=== PATIENT | female | born 1960 ===

== ENCOUNTER 2017-02-21 07:13 | Observation (INO) | payer OTHER, MEDICAID ==
--- NOTE | 2017-02-21 07:48 | ED PDOC ---
HPI:STROKE - Time Time: 07:45 - Historian Historian: Patient - Chief Complaint Chief Complaint: Weakness - Onset Date: 02/20/17 Time: 21:00 (last known well) - Timing Timing: Currently Symptomatic - Notes: Notes:: Pt. was doing well when she went to bed at 9pm. This morning when she woke up at 630am she had dizziness, weakness to the R side more then the left, numbness to the entire R side. [place] to the L leg. No vision changes. No headaches. Numbness to the R face. No neck pain, dyspnea, fever, chest pain. No speech issues. Nausea, no vomit. No abd pain. Feels off balance. NIHSS Stroke Scale - Date/Time Evaluation Performed Date Performed: 02/21/17 Time Performed: 07:48 When Was NIHSS Performed: Baseline - How Severe is the Stroke Level of Consciousness: 0=Alert LOC to Questions: 0=Both comments correct LOC to commands: 0=Obeys both correctly Best Gaze: 0=Normal Visual: 0=No visual loss Facial: 0=Normal Motor Arm - Left: 0=No drift Motor Arm - Right: 0=No drift Motor Leg - Left: 0=No drift Motor Leg - Right: 0=No drift Limb Ataxia: 0=Absent Sensory: 0=Normal Best Language: 0=No aphasia Dysarthia: 0=Normal articulation Extinction & Inattention (Neglect): 0=Normal, no object Score: 0 rTPA Inclusion/Exclusion - Refusal of Treatment Patient Refused Treatment: No - Inclusion Criteria for Altepase Patient is 18 years or Older: Yes The Clinical Diagnosis of Ischemic Stroke That is Causing a Potentially Disabling Neurological Deficit: No Time of Onset is Well Established to be Less Than 270 Minute Before Treatment Would Begin: No Risk/Benefit Discussed With Patient/Family Member Present: No Past Medical History Reviewed: Nursing Documentation, Vital Signs Vital Signs: Last Vital Signs Temp 98.4 F 02/21/17 07:19 Pulse 58 L 02/21/17 07:19 Resp 20 02/21/17 07:19 BP 147/101 H 02/21/17 07:19 Pulse Ox 99 02/21/17 07:19 - Medical History Other PMH: prediabetic and bipolar - Family History Family History: States: Unknown Family Hx - Social History Current smoker - smoking cessation education provided: No Alcohol: None Drugs: Denies - Home Medications Home Medications: Ambulatory Orders Medication Instructions Recorded Doxepin [Sinequan] 25 mg PO HS 02/21/17 - Allergies Allergies/Adverse Reactions: Allergies Allergy/AdvReac Type Severity Reaction Status Date / Time Penicillins Allergy RASH Verified 02/21/17 07:42 Review of Systems ROS Statement: Except As Marked, All Systems Reviewed And Found Negative Constitutional: Positive for: Weakness Neurological: Positive for: Weakness, Numbness, Incoordination (feels off balance), Dizziness Physical Exam - Reviewed Nursing Documentation Reviewed: Yes Vital Signs Reviewed: Yes - Physical Exam Appears: Positive for: Non-toxic, No Acute Distress Head Exam: Positive for: ATRAUMATIC, NORMAL INSPECTION, NORMOCEPHALIC Skin: Positive for: Normal Color, Warm, DRY Eye Exam: Positive for: EOMI, Normal appearance, PERRL ENT: Positive for: Normal ENT Inspection Neck: Positive for: Normal, Painless ROM Cardiovascular/Chest: Positive for: Regular Rate, Rhythm Respiratory: Positive for: CNT, Normal Breath Sounds Gastrointestinal/Abdominal: Positive for: Normal Exam, Bowel Sounds, Soft. Negative for: Tenderness Back: Positive for: Normal Inspection. Negative for: L CVA Tenderness, R CVA Tenderness Extremity: Positive for: Normal ROM. Negative for: Tenderness, Pedal Edema Neurologic/Psych: Positive for: Alert, creative services coordinator II-XII, Oriented, Motor/Sensory Deficits (R side 3/5 strength, L side 4/5 strength of upper and lower extremities) - Laboratory Results Result Diagrams: 02/21/17 07:50 02/21/17 07:50 Interpretation Of Abn Labs: no acute - ECG ECG Rhythm: Positive for: Normal QRS, Normal ST Segment, Sinus Bradycardia (52 hr) O2 Sat by Pulse Oximetry: 99 Pulse Ox Interpretation: Normal - Radiology X-Ray: Read By Radiologist X-Ray Interpretation: No Acute Disease - CT Scan/US ct Other Rad Studies (CT/US): Read By Radiologist Other Rad Interpretation: no acute - Progress ED Course And Treament: 1122: Pt. states weakness and dizziness improving, but still there. Will need to admit tele for eval. 1152: Stable. Spoke with Dr. Goddard. Will admit. Spoke with neurology. No thrombolytics. Pt. to get admit and ASA. Disposition - Clinical Impression Clinical Impression: CVA (cerebral vascular accident) - Patient ED Disposition Is Patient to be Admitted: Yes Counseled Patient/Family Regarding: Studies Performed, Diagnosis - Disposition Disposition Time: 12:02 Condition: FAIR - Pt Status Changed To: Hospital Disposition Of: Inpatient - Admit Certification Admit to Inpatient:: After my assessment, the patient will require hospitalization for at least two midnights. This is because of the severity of symptoms shown, intensity of services needed, and/or the medical risk in this patient being treated as an outpatient. - POA Present On Arrival: None
[2017-02-21 08:04] LABS: EOS # 0.2 K/uL (0.0-0.7); EOS % 4.1 % (0.0-4.0); HEMATOCRIT 43.5 % (34.0-47.0); LYMPH # 1.7 K/uL (1.0-4.3); LYMPH % 39.2 % (20.0-40.0); MEAN CELL VOLUME 91.9 fl (81.0-99.0); MEAN CORPUSCULAR HEMOGLOBIN 29.8 pg (27.0-31.0); MEAN CORPUSCULAR HGB CONC 32.4 g/dL (33.0-37.0); MEAN PLATELET VOLUME 11.6 fl (7.2-11.7); MONO # 0.4 K/uL (0.0-0.8); MONO % 8.8 % (0.0-10.0); NEUT # 2.1 K/uL (1.8-7.0); NEUT % 46.9 % (50.0-75.0); NRBC % 0.1 % (0.0-0.0); RED CELL DISTRIBUTION WIDTH 14.8 % (11.5-14.5); WHITE BLOOD COUNT 4.4 K/uL (4.8-10.8)
[2017-02-21] MEDS: Sodium Chloride 0.9% 1,000 ML IV SCH ×2 (08:07→16:49)
--- NOTE | 2017-02-21 08:07 | CT ---
PROCEDURE: CT HEAD WITHOUT CONTRAST. HISTORY: code stroke COMPARISON: None available. TECHNIQUE: Axial computed tomography images were obtained through the head/brain without intravenous contrast. Radiation dose: Total exam DLP = mGy-cm. This CT exam was performed using one or more of the following dose reduction techniques: Automated exposure control, adjustment of the mA and/or kV according to patient size, and/or use of iterative reconstruction technique. FINDINGS: HEMORRHAGE: No intracranial hemorrhage. BRAIN: No mass effect or edema. No atrophy or chronic microvascular ischemic changes. VENTRICLES: Unremarkable. No hydrocephalus. CALVARIUM: Unremarkable. PARANASAL SINUSES: Unremarkable as visualized. No significant inflammatory changes. MASTOID AIR CELLS: Unremarkable as visualized. No inflammatory changes. OTHER FINDINGS: None. IMPRESSION: No evidence of acute intracranial hemorrhage territorial infarct mass effect or midline shift.
[2017-02-21 08:20] LABS: PARTIAL THROMBOPLASTIN TIME 24.7 SECONDS (23.3-32.5)
[2017-02-21 08:35] LABS: ALB/GLOB RATIO 1.2 (1.0-2.1); ALKALINE PHOSPHATASE 72 U/L (38-126); ALT/SGPT 39 U/L (9-52); AST/SGOT 38 U/L (14-36); BILIRUBIN,TOTAL 0.6 mg/dl (0.2-1.3); BLOOD UREA NITROGEN 9 mg/dl (7-17); CALCIUM 9.1 mg/dL (8.4-10.2); CARBON DIOXIDE 27 mmol/L (22-30); CHLORIDE 104 mmol/L (98-107); CHOLESTEROL 208 mg/dL (0-199); GFR AFRICAN-AMERICAN > 60; GLUCOSE,RANDOM 109 mg/dL (65-105); SODIUM 143 mmol/l (132-148); TOTAL PROTEIN 7.2 G/DL (6.3-8.2)
[2017-02-21 08:37] LABS: POTASSIUM 3.9 MMOL/L (3.6-5.0)
--- NOTE | 2017-02-21 08:53 | RAD ---
HISTORY: Dizziness COMPARISON: No prior. FINDINGS: LUNGS: There are low lung volumes. No focal consolidation. PLEURA: No significant pleural effusion identified, no pneumothorax apparent. CARDIOVASCULAR: Normal. OSSEOUS STRUCTURES: No significant abnormalities. VISUALIZED UPPER ABDOMEN: Normal. OTHER FINDINGS: None. IMPRESSION: No active pulmonary disease.
--- NOTE | 2017-02-21 14:52 | CARD ---
APPROVED REPORT EKG Measurement Heart [id number] <Conclusion> Sinus bradycardia Otherwise normal ECG
--- NOTE | 2017-02-21 19:02 | CP.PCM.CON ---
History of Present Illness - History of Present Illness History of Present Illness: Mrs. Carpenter is a 56-year-old woman with a past medical history of bipolar disorder and pre-diabetes who states that she woke up this morning with a feeling that the room was spinning and right sided weakness. She was able to ambulate, but felt that the right side was weaker than the left and it felt numb. She complained of nausea, but did not have any visual deficits, headache , chest pain, shortness of breath, abdominal pain or vomiting. Review of Systems - Review of Systems All systems: reviewed and no additional remarkable complaints except Past Patient History - Infectious Disease Hx of Infectious Diseases: None - Past Medical History & Family History Past Medical History?: Yes - Past Social History Smoking Status: Never Smoked - CARDIAC Hx Cardiac Disorders: No - PULMONARY Hx Respiratory Disorders: No - NEUROLOGICAL Hx Neurological Disorder: No - HEENT Hx HEENT Problems: No - RENAL Hx Chronic Kidney Disease: No - ENDOCRINE/METABOLIC Hx Endocrine Disorders: Yes Hx Diabetes Mellitus Type 2: Yes (pre-diabetes) - HEMATOLOGICAL/ONCOLOGICAL Hx Blood Disorders: No - INTEGUMENTARY Hx Dermatological Problems: No - MUSCULOSKELETAL/RHEUMATOLOGICAL Hx Musculoskeletal Disorders: No - GASTROINTESTINAL Hx Gastrointestinal Disorders: No - GENITOURINARY/GYNECOLOGICAL Hx Genitourinary Disorders: Yes Other/Comment: endometriosis - PSYCHIATRIC Hx Psychophysiologic Disorder: Yes Hx Bipolar Disorder: Yes Hx Substance Use: No - SURGICAL HISTORY Hx Surgeries: No - ANESTHESIA Hx Anesthesia: No Meds Allergies/Adverse Reactions: Allergies Allergy/AdvReac Type Severity Reaction Status Date / Time Penicillins Allergy RASH Verified 02/21/17 07:42 - Medications Medications: Current Medications Doxepin HCl (Sinequan) 25 mg PO HS [facility] Sodium Chloride (Sodium Chloride 0.9%) 1,000 mls @ 100 mls/hr IV .Q10H CHRISTEL Last Admin: 02/21/17 16:49 Dose: 100 mls/hr Lamotrigine (Lamictal) 200 mg PO DAILY CHRISTEL Last Admin: 02/21/17 16:39 Dose: 200 mg Meclizine HCl (Antivert) 12.5 mg PO BID PRN PRN Reason: Dizziness Physical Exam - Constitutional Appears: Well - Head Exam Head Exam: ATRAUMATIC, NORMAL INSPECTION, NORMOCEPHALIC - Eye Exam Eye Exam: EOMI, Normal appearance, PERRL - ENT Exam ENT Exam: Mucous Membranes Moist, Normal Exam - Neck Exam Neck exam: Positive for: Normal Inspection - Respiratory Exam Respiratory Exam: Clear to Auscultation Bilateral, NORMAL BREATHING PATTERN - Cardiovascular Exam Cardiovascular Exam: REGULAR RHYTHM, +S1, +S2 - GI/Abdominal Exam GI & Abdominal Exam: Normal Bowel Sounds, Soft. absent: Tenderness - Back Exam Back exam: NORMAL INSPECTION - Neurological Exam Neurological exam: Abnormal Gait, CN II-XII Intact, Oriented x3 - Expanded Neurological Exam Expanded Patient oriented to: person, place, time Speech: Fluid Speech Cranial nerves: EOM's Intact: Normal, Facial Sensation: Abnormal Right, Gag Reflex: Normal Ataxia: No Cerebellar Function: Finger to Nose: Abnormal Right, Heel to Murphy: Abnormal Right Upper motor neuron: Babinski Sign: Abnormal Right Sensory exam: Lower Extremity 2 Point Discrimination: Abnormal Right, Lower Extremity Light Touch: Abnormal Right, Lower Extremity Pin Prick: Abnormal Right , Upper Extremity Light Touch: Abnormal Right, Upper Extremity Pin Prick: Abnormal Right Neuro motor strength exam: Left Upper Extremity: 5, Right Upper Extremity: 4, Left Lower Extremity: 5, Right Lower Extremity: 4 DTR: Bicep Left: 2+, Bicep Right: 3+, Patellar Left: 2+, Patellar Right: 3+ - Psychiatric Exam Psychiatric exam: Normal Affect, Normal Mood - Skin Skin Exam: Dry, Intact, Normal Color, Warm Results - Vital Signs Recent Vital Signs: Last Vital Signs Temp 98.2 F 02/21/17 17:05 Pulse 56 L 02/21/17 17:05 Resp 18 02/21/17 17:05 BP 102/66 02/21/17 17:05 Pulse Ox 97 02/21/17 17:05 - Labs Result Diagrams: 02/21/17 07:50 02/21/17 07:50 Labs: Laboratory Results - last 24 hr 02/21/17 15:20 Blood Type Confirm B POSITIVE - Imaging and Cardiology CT scan - head Status: Image reviewed by me, Report reviewed by me (No acute findings noted. ) Assessment & Plan (1) CVA (cerebral vascular accident) Assessment and Plan: Clinically, the patient has a right facial droop, sensory changes and weakness. Likely a lacunar infarct. I recommend: MRI/MRA of the head/neck, carotid ultrasound, lipid panel, HbA1c, CRP, ESR, B12, folate, aspirin 81 mg daily, lipitor 40 mg daily, NS at 100 mL/hr, permissive hypertension (do not treat BP < 220/110 for the first 24-36 hours), echocardiogram with bubble study, DVT Px, PT /OT/ST, case management consult. Status: Acute Priority: High
[2017-02-21 21:11] LABS: CHOLESTEROL 202 mg/dL (0-199)
[2017-02-22] MEDS: Sodium Chloride 0.9% 1,000 ML IV SCH ×2 (04:45→13:45)
--- NOTE | 2017-02-22 08:56 | CT ---
PROCEDURE: CT HEAD WITHOUT CONTRAST. HISTORY: Right arm/ right side face tingling and numbness COMPARISON: None available. TECHNIQUE: Axial computed tomography images were obtained through the head/brain without intravenous contrast. Radiation dose: Total exam DLP = 822.45 mGy-cm. This CT exam was performed using one or more of the following dose reduction techniques: Automated exposure control, adjustment of the mA and/or kV according to patient size, and/or use of iterative reconstruction technique. FINDINGS: HEMORRHAGE: No intracranial hemorrhage. BRAIN: Melvin-white matter differentiation is preserved. There is no mass, mass effect or abnormal extra-axial fluid collection. VENTRICLES: The ventricles are normal in size, shape and configuration. CALVARIUM: There is no calvarial fracture or extracranial soft tissue swelling. PARANASAL SINUSES: Predominantly clear. MASTOID AIR CELLS: Predominantly clear. OTHER FINDINGS: None. IMPRESSION: No acute intracranial abnormality. If there is a persistent focal neurologic deficit and an ongoing clinical concern for acute infarction, an MRI of the brain without intravenous contrast would be a more sensitive modality for evaluation of hyperacute/acute ischemic infarction. A preliminary report was provided by [employer].
--- NOTE | 2017-02-22 12:23 | CARD ---
APPROVED REPORT EXAM: Two-dimensional and M-mode echocardiogram with Doppler and color Doppler. Other Information Quality : GoodRhythm : NSR INDICATION Dizziness and Vertigo 2D DIMENSIONS IVSd0.73 (0.7-1.1cm)LVDd4.55 (3.9-5.9cm) PWd0.68 (0.7-1.1cm)IVSs0.88 (0.8-1.2cm) LVDs2.79 (2.5-4.0cm)FS (%) 38.8 % PWs1.02 (0.8-1.2cm) M-Mode DIMENSIONS Left Atrium (MM)3.79 (2.5-4.0cm)IVSd0.82 (0.7-1.1cm) Aortic Root2.91 (2.2-3.7cm)LVDd5.56 (4.0-5.6cm) Aortic Cusp Exc.1.47 (1.5-2.0cm)PWd0.74 (0.7-1.1cm) IVSs1.47 cmFS (%) 50 % LVDs2.76 (2.0-3.8cm)PWs1.44 cm Mitral Valve MV E Xrmqcedz81.3cm/sMV DECEL [id number] A Qrwqdcce90.7cm/s MV OXC12vhX/A ratio1.2MVA (PHT)3.42cm2 TDI Lateral E' Peak V12.96cm/sMedial E' Peak V11.73cm/sE/Lateral E'6.6 E/Medial E'7.3 LEFT VENTRICLE The left ventricle is normal size. There is normal left ventricular wall thickness. Left ventricle systolic function is normal. The Ejection Fraction is 60-65%. There is normal LV segmental wall motion. The left ventricular diastolic function is normal. RIGHT VENTRICLE The right ventricle is normal size. There is normal right ventricular wall thickness. The right ventricular systolic function is normal. ATRIA The left atrium size is normal. The right atrium size is normal. AORTIC VALVE The aortic valve is normal in structure and function. No aortic regurgitation is present. There is no aortic valvular stenosis. MITRAL VALVE The mitral valve is normal in structure and function. There is no evidence of mitral valve prolapse. There is no mitral valve stenosis. There is no mitral valve regurgitation noted. TRICUSPID VALVE The tricuspid valve is normal in structure and function. There is no tricuspid valve regurgitation noted. PULMONIC VALVE The pulmonary valve is normal in structure and function. There is no pulmonic valvular regurgitation. GREAT VESSELS The aortic root is normal in size. The IVC is normal in size and collapses >50% with inspiration. PERICARDIAL EFFUSION The pericardium appears normal. <Conclusion> The left ventricle is normal size. There is normal left ventricular wall thickness. There is normal LV segmental wall motion. Left ventricle systolic function is normal. The Ejection Fraction is 60-65%. The left ventricular diastolic function is normal.
--- NOTE | 2017-02-22 16:42 | MRI ---
PROCEDURE: MRI BRAIN WITHOUT CONTRAST HISTORY: right side weakness COMPARISON: Comparison is made to the previous CT dated 02/21/2017 TECHNIQUE: Multiplanar, multisequence MR images of the brain were obtained without intravenous contrast enhancement. FINDINGS: HEMORRHAGE: None DWI: No evidence of an acute or early subacute infarction. BRAIN PARENCHYMA: No mass effect or edema. No atrophy or chronic microvascular ischemic changes. VENTRICLES: Unremarkable. No hydrocephalus. CRANIUM: Unremarkable. ORBITS: Grossly unremarkable. PARANASAL SINUSES/MASTOIDS: Clear VASCULAR SYSTEM: Skull base flow voids intact. OTHER FINDINGS: None. IMPRESSION: No evidence of acute infarct or acute pathology in the brain.
--- NOTE | 2017-02-22 16:45 | CP.PCM.HP ---
<Sera Echevarria - Last Filed: 02/22/17 17:13> History of Present Illness - History of Present Illness History of Present Illness: CC: numbness/tingling in RUE/RLE Patient was admitted yesterday and seen this morning at bedside with attending. 56F who reports getting ready for work yesterday as usual but she did not "feel well", but unable to qualify, while getting showered and dressed. She says she called [employer] and was heading to work and then along the way began feeling worse with headache and dizziness, specifically as though "the room was spinning" and asked the [employer] hydraulic lift driver to bring her to the ED. She then reports she began feeling numbness/tingling that involved her RIGHT upper/lower extremity with some mild weakness, but the numbness/tingling was the prominent symptom. She denies having the symptoms in the past, it was not associated with any recent viral illnesses (pneumonia in July 2016), no hearing loss, no speech or visual changes, no diaphoresis, no chest pain, no palpitations. She denies urinary symptoms, diarrhea. Of note, she reports the symptoms resolved in the ED and she denies any symptoms this morning. Currently she denies SOB, chest pain, nausea, tolerated dinner last night, passing flatus, no other feelings of weakness/numbness/tingling overnight but she still feels a "little dizzy, like the room is spinning, but very mild". PMH: Bipolar PSH: Laparotomy for endometriosis PFH: Father- from lung ca at 65yo; Mother- Alive w/ HTN; denies siblings Allergies: PCN (rxn unknown) Medications: See Med Rec Present on Admission - Present on Admission Any Indicators Present on Admission: No History of DVT/PE: No History of Uncontrolled Diabetes: No Urinary Catheter: No Decubitus Ulcer Present: No Review of Systems - Review of Systems All systems: reviewed and no additional remarkable complaints except - Neurological Neurological: Numbness, Tingling, Vertigo Past Patient History - Infectious Disease Hx of Infectious Diseases: None - Past Medical History & Family History Past Medical History?: Yes - Past Social History Smoking Status: Never Smoked - CARDIAC Hx Cardiac Disorders: No - PULMONARY Hx Respiratory Disorders: No - NEUROLOGICAL Hx Neurological Disorder: No - HEENT Hx HEENT Problems: No - RENAL Hx Chronic Kidney Disease: No - ENDOCRINE/METABOLIC Hx Endocrine Disorders: Yes Hx Diabetes Mellitus Type 2: Yes (pre-diabetes) - HEMATOLOGICAL/ONCOLOGICAL Hx Blood Disorders: No - INTEGUMENTARY Hx Dermatological Problems: No - MUSCULOSKELETAL/RHEUMATOLOGICAL Hx Musculoskeletal Disorders: No - GASTROINTESTINAL Hx Gastrointestinal Disorders: No - GENITOURINARY/GYNECOLOGICAL Hx Genitourinary Disorders: Yes Other/Comment: endometriosis - PSYCHIATRIC Hx Psychophysiologic Disorder: Yes Hx Bipolar Disorder: Yes Hx Substance Use: No - SURGICAL HISTORY Hx Surgeries: No - ANESTHESIA Hx Anesthesia: No Meds Allergies/Adverse Reactions: Allergies Allergy/AdvReac Type Severity Reaction Status Date / Time Penicillins Allergy RASH Verified 02/21/17 07:42 Physical Exam - Constitutional Appears: Well, Non-toxic, No Acute Distress - Head Exam Head Exam: ATRAUMATIC, NORMAL INSPECTION - Eye Exam Eye Exam: EOMI, PERRL. absent: Nystagmus - ENT Exam ENT Exam: Mucous Membranes Moist, Normal Exam - Neck Exam Neck exam: Positive for: Full Rom, Normal Inspection. Negative for: Lymphadenopathy - Respiratory Exam Respiratory Exam: Clear to Auscultation Bilateral, NORMAL BREATHING PATTERN. absent: Rales, Rhonchi, Wheezes - Cardiovascular Exam Cardiovascular Exam: REGULAR RHYTHM. absent: JVD - GI/Abdominal Exam GI & Abdominal Exam: Normal Bowel Sounds, Soft. absent: Tenderness - Extremities Exam Extremities exam: Positive for: full ROM, normal capillary refill, normal inspection. Negative for: pedal edema - Neurological Exam Neurological exam: Alert, CN II-XII Intact, Oriented x3, Reflexes Normal Additional comments: NO MOTOR/SENSORY DEFICITS PRESENT AT EXAM THIS MORNING NO FACIAL DROOP NO NASOLABIAL FOLD FLATTENING - Psychiatric Exam Psychiatric exam: Normal Affect, Normal Mood - Skin Skin Exam: Dry, Warm Results - Vital Signs Recent Vital Signs: Last Vital Signs Temp 36.7 C 02/22/17 16:23 Pulse 59 L 02/22/17 16:23 Resp 20 02/22/17 16:23 BP 138/82 02/22/17 16:23 Pulse Ox 97 02/22/17 16:23 - Labs Result Diagrams: 02/21/17 07:50 02/21/17 07:50 Labs: Laboratory Results - last 24 hr 02/21/17 02/21/17 02/22/17 15:20 20:10 07:40 Triglycerides 94 D Cholesterol 202 H LDL Cholesterol Direct 86 HDL Cholesterol 77 H TSH 3rd Generation 1.62 Blood Type Confirm B POSITIVE Assessment & Plan (1) CVA (cerebral vascular accident) Assessment and Plan: Initial CXR/CT/EKG WNL except EKG showing bradycardia. - Neurology Consult (Dr Rojas) appreciated - Rpt CT: No acute findings - MRI Brain: No evidence of infarct or acute pathology - MRA Brain: PENDING - MRA Neck: No carotid stenosis - Carotid Duplex - Lipid Panel: Chol- 208H, HDL- 78H - HgbA1C: 5.6 - CRP/ESR/B12/Folate: PENDING - Aspirin 81mg, PO, Daily - Lipitor 40mg, PO, Daily - Echocardiogram: Diastolic/Systolic Function intact, no valvular defects, EF: 60-65% - Permissive HTN for 24-36hrs - NS@100ml/hr - DVT Prophylaxis - PT/OT/ST - Case Mgmnt Status: Acute Priority: High (2) Bipolar 1 disorder Assessment and Plan: Chronic, controlled - Doxepin 25mg, PO, HS - Lamictal 200mg, PO, Daily Status: Acute (3) DVT prophylaxis Assessment and Plan: SCDs b/l continuous Status: Acute <Km Goddard L - Last Filed: 02/23/17 16:35> Results - Vital Signs Recent Vital Signs: Last Vital Signs Temp 97.5 F L 02/23/17 16:00 Pulse 66 02/23/17 16:00 Resp 18 02/23/17 16:00 BP 119/79 02/23/17 16:00 Pulse Ox 98 02/23/17 16:00 - Labs Result Diagrams: 02/21/17 07:50 02/21/17 07:50 Labs: Laboratory Results - last 24 hr 02/22/17 02/23/17 02/23/17 07:40 05:00 05:00 ESR 14 Hemoglobin A1c 5.6 C-React Prot High Sens 7.05 H Vitamin B12 02/23/17 05:00 ESR Hemoglobin A1c C-React Prot High Sens Vitamin B12 266 Assessment & Plan - Assessment and Plan (Free Text) Plan: I was present during evaluation ad examined personally [facility] patient discussed with Dr Swathi corcoran plans of care.
--- NOTE | 2017-02-22 16:45 | MRI ---
PROCEDURE: MR Angiography of the neck without contrast HISTORY: right side weakness COMPARISON: None available. TECHNIQUE: 3D Nage-te-lcdyoh angiography of the neck was performed. Rotating maximum intensity projection images of the cervical carotid and vertebral arteries were generated. The origins of the common carotid arteries were not visualized, which is a limitation inherent to the non-contrast time of flight technique. FINDINGS: RIGHT CAROTID ARTERIES: Common Carotid Artery: Normal. Carotid Bifurcation: Normal. Internal Carotid Artery:Normal. External Carotid Artery (proximal branches): Normal. LEFT CAROTID ARTERIES: Common Carotid Artery: Normal. Carotid Bifurcation: Normal. Internal Carotid Artery:Normal. External Carotid Artery (proximal branches): Normal. VERTEBRAL ARTERIES: Right Vertebral Artery: Normal. Left Vertebral Artery: Normal. OTHER FINDINGS: None. IMPRESSION: No MRA evidence of significant stenosis at the carotid arteries of the neck.
--- NOTE | 2017-02-22 16:51 | MRI ---
PROCEDURE: Magnetic Resonance Angiography Brain HISTORY: cva COMPARISON: None available. TECHNIQUE: 3D time of flight MR angiography of the intracranial arteries was performed. Rotating maximum intensity projection images were generated. FINDINGS: INTERNAL CEREBRAL ARTERIES: Unremarkable. The skull base, petrous, cavernous and supraclinoid segments are bilaterally widely patient. ANTERIOR CEREBRAL ARTERIES: Unremarkable. A1 and A2 segments are widely patent. Smaller distal branches unremarkable, as visualized. MIDDLE CEREBRAL ARTERIES: Unremarkable. M1 and M2 segments are widely patent. Perisylvian branches grossly symmetric. POSTERIOR CIRCULATION: Basilar Artery: Unremarkable. Distal Vertebral Arteries: Unremarkable. Posterior Cerebral Arteries: Unremarkable. Posterior Inferior Cerebellar Arteries: Unremarkable. ANEURYSM/ VASCULAR MALFORMATIONS: None. OTHER FINDINGS: None. IMPRESSION: No evidence of focal hemodynamically significant stenosis or occlusion in the intracranial arteries.
--- NOTE | 2017-02-23 16:37 | CP.PCM.PN ---
Subjective - Date & Time of Evaluation Date of Evaluation: 02/23/17 Time of Evaluation: 16:36 - Subjective Subjective: patient has poor balance when she had PT this morning Has no chest pain or SOB Has no fever. Objective - Vital Signs/Intake and Output Vital Signs (last 24 hours): Temp Pulse Resp BP Pulse Ox 97.5 F L 66 18 119/79 98 02/23/17 16:00 02/23/17 16:00 02/23/17 16:00 02/23/17 16:00 02/23/17 16:00 - Medications Medications: Current Medications Aspirin (Ecotrin) 81 mg PO DAILY [facility] Last Admin: 02/23/17 08:49 Dose: 81 mg Atorvastatin Calcium (Lipitor) 40 mg PO DAILY [facility] Last Admin: 02/23/17 08:48 Dose: 40 mg Doxepin HCl (Sinequan) 25 mg PO HS [facility] Last Admin: 02/22/17 21:55 Dose: 25 mg Lamotrigine (Lamictal) 200 mg PO DAILY [facility] Last Admin: 02/23/17 08:48 Dose: 200 mg Meclizine HCl (Antivert) 12.5 mg PO BID PRN PRN Reason: Dizziness - Labs Labs: PT 10.0 SECONDS (9.6-11.2) 02/21/17 07:50 INR 0.96 (0.92-1.08) 02/21/17 07:50 APTT 24.7 SECONDS (23.3-32.5) 02/21/17 07:50 - Head Exam Head Exam: NORMAL INSPECTION - Eye Exam Eye Exam: Normal appearance - ENT Exam ENT Exam: Mucous Membranes Moist - GI/Abdominal Exam GI & Abdominal Exam: Normal Bowel Sounds - Neurological Exam Neurological Exam: CN II-XII Intact, Oriented x3 - Psychiatric Exam Psychiatric exam: Normal Mood Assessment and Plan (1) Bipolar 1 disorder Status: Acute (2) CVA (cerebral vascular accident) Status: Acute - Assessment and Plan (Free Text) Plan: Cont meds Cont PT subacute rehab con meds.
[2017-02-23 17:34] LABS: FOLATE 8.4 ng/mL
--- NOTE | 2017-02-24 13:10 | CP.PCM.PN ---
Subjective - Date & Time of Evaluation Date of Evaluation: 02/24/17 Time of Evaluation: 13:09 - Subjective Subjective: Patient has been doing well. Has no chest pain or SOB. Afebrile. Objective - Vital Signs/Intake and Output Vital Signs (last 24 hours): Temp Pulse Resp BP Pulse Ox 98.0 F 60 18 121/80 95 02/24/17 12:17 02/24/17 12:17 02/24/17 12:17 02/24/17 12:17 02/24/17 12:17 - Medications Medications: Current Medications Aspirin (Ecotrin) 81 mg PO DAILY [facility] Last Admin: 02/24/17 08:53 Dose: 81 mg Atorvastatin Calcium (Lipitor) 40 mg PO DAILY [facility] Last Admin: 02/24/17 08:53 Dose: 40 mg Doxepin HCl (Sinequan) 25 mg PO HS [facility] Last Admin: 02/23/17 21:27 Dose: 25 mg Lamotrigine (Lamictal) 200 mg PO DAILY [facility] Last Admin: 02/24/17 08:53 Dose: 200 mg Meclizine HCl (Antivert) 12.5 mg PO BID PRN PRN Reason: Dizziness - Labs Labs: PT 10.0 SECONDS (9.6-11.2) 02/21/17 07:50 INR 0.96 (0.92-1.08) 02/21/17 07:50 APTT 24.7 SECONDS (23.3-32.5) 02/21/17 07:50 - Head Exam Head Exam: NORMAL INSPECTION - Eye Exam Eye Exam: Normal appearance - ENT Exam ENT Exam: Mucous Membranes Moist - Respiratory Exam Respiratory Exam: Clear to Ausculation Bilateral - Cardiovascular Exam Cardiovascular Exam: REGULAR RHYTHM - GI/Abdominal Exam GI & Abdominal Exam: Normal Bowel Sounds - Neurological Exam Neurological Exam: Awake - Psychiatric Exam Psychiatric exam: Normal Mood Assessment and Plan (1) Bipolar 1 disorder Status: Acute (2) CVA (cerebral vascular accident) Status: Acute - Assessment and Plan (Free Text) Plan: cont meds cont tx Cont PT. subacute rehab
--- NOTE | 2017-02-25 10:21 | CP.PCM.PN ---
Subjective - Date & Time of Evaluation Date of Evaluation: 02/25/17 Time of Evaluation: 10:20 - Subjective Subjective: Has been very stable Has no chest pain or SOB Objective - Vital Signs/Intake and Output Vital Signs (last 24 hours): Temp Pulse Resp BP Pulse Ox 97.8 F 58 L 18 93/63 L 97 02/25/17 07:57 02/25/17 07:57 02/25/17 07:57 02/25/17 07:57 02/25/17 07:57 - Medications Medications: Current Medications Aspirin (Ecotrin) 81 mg PO DAILY [facility] Last Admin: 02/25/17 08:29 Dose: 81 mg Atorvastatin Calcium (Lipitor) 40 mg PO DAILY [facility] Last Admin: 02/25/17 08:29 Dose: 40 mg Doxepin HCl (Sinequan) 25 mg PO HS [facility] Last Admin: 02/24/17 21:14 Dose: 25 mg Lamotrigine (Lamictal) 200 mg PO DAILY [facility] Last Admin: 02/25/17 08:29 Dose: 200 mg Meclizine HCl (Antivert) 12.5 mg PO BID PRN PRN Reason: Dizziness Last Admin: 02/25/17 08:28 Dose: 12.5 mg - Labs Labs: PT 10.0 SECONDS (9.6-11.2) 02/21/17 07:50 INR 0.96 (0.92-1.08) 02/21/17 07:50 APTT 24.7 SECONDS (23.3-32.5) 02/21/17 07:50 Assessment and Plan (1) Bipolar 1 disorder Status: Acute (2) CVA (cerebral vascular accident) Status: Acute
--- NOTE | 2017-02-25 11:04 | CT ---
PROCEDURE: CT HEAD WITHOUT CONTRAST. HISTORY: r/o cva COMPARISON: Comparison is made to the previous study dated 02/21/2017 TECHNIQUE: Axial computed tomography images were obtained through the head/brain without intravenous contrast. Radiation dose: Total exam DLP = 852.4 mGy-cm. This CT exam was performed using one or more of the following dose reduction techniques: Automated exposure control, adjustment of the mA and/or kV according to patient size, and/or use of iterative reconstruction technique. FINDINGS: HEMORRHAGE: No intracranial hemorrhage. BRAIN: No mass effect or edema. No atrophy or chronic microvascular ischemic changes. VENTRICLES: Unremarkable. No hydrocephalus. CALVARIUM: Unremarkable. PARANASAL SINUSES: Unremarkable as visualized. No significant inflammatory changes. MASTOID AIR CELLS: Unremarkable as visualized. No inflammatory changes. OTHER FINDINGS: None. IMPRESSION: No evidence of acute intracranial hemorrhage territorial infarct mass effect or midline shift. No significant interval change compared to the previous study of the noted .
--- NOTE | 2017-02-25 15:03 | CP.PCM.PCO ---
Assessment & Plan - Assessment and Plan (Free Text) Plan: Patient seen and examined today. Had a period of dizziness with right sided facial and hand numbness this morning. Head Ct-Scan repeated and no acute findings. Pt reassessed this afternoon, numbness has resolved. Dizziness persists, physical therapy reevaluating patient. Patients positive for orthostatic hypotension with physical therapy from 137/82 supine, to 123/86 sitting to 108/73 standing. Plan of care discussed with Dr Goddard, CBC CMP ordered, ivf NS @100 cc/hr started. Neuro checks q4hr Will monitor vitals and reassess in the morning. Patient on asa, lipitor as per Neurology recommendations.
[2017-02-25] MEDS: Sodium Chloride 0.9% 1,000 ML IV SCH (15:26)
[2017-02-25 17:18] LABS: MEAN CELL VOLUME 91.3 fl (81.0-99.0); MEAN CORPUSCULAR HEMOGLOBIN 30.2 pg (27.0-31.0); MEAN CORPUSCULAR HGB CONC 33.1 g/dL (33.0-37.0); RED CELL DISTRIBUTION WIDTH 14.5 % (11.5-14.5); WHITE BLOOD COUNT 5.2 K/uL (4.8-10.8)
[2017-02-25 17:25] LABS: ALB/GLOB RATIO 1.2 (1.0-2.1); ALKALINE PHOSPHATASE 63 U/L (38-126); ALT/SGPT 32 U/L (9-52); AST/SGOT 23 U/L (14-36); BILIRUBIN,TOTAL 0.3 mg/dl (0.2-1.3); BLOOD UREA NITROGEN 8 mg/dl (7-17); CALCIUM 9.3 mg/dL (8.4-10.2); CARBON DIOXIDE 26 mmol/L (22-30); CHLORIDE 108 mmol/L (98-107); GFR AFRICAN-AMERICAN > 60; GLUCOSE,RANDOM 99 mg/dL (65-105); POTASSIUM 4.1 MMOL/L (3.6-5.0); SODIUM 143 mmol/l (132-148); TOTAL PROTEIN 6.9 G/DL (6.3-8.2)
[2017-02-26] MEDS: Sodium Chloride 0.9% 1,000 ML IV SCH ×2 (01:54→17:05)
--- NOTE | 2017-02-26 10:16 | CP.PCM.PN ---
Subjective - Date & Time of Evaluation Date of Evaluation: 02/26/17 Time of Evaluation: 10:00 - Subjective Subjective: Pt was transferred from Dr Goddard to the Hospitalist service as per pt's request. She wanted another physician to see her. History reviewed, labs and imaging reveiwed. Had a long discussion with pt regarding her working diagnoses, discussed all test results - CT scan of head x 3 , MRI of brain , MRA of head, ECHo. Also discussed that i noted some episodes of bradycardia on Tele monitor and need for Cardiac eval. Plan of treatment discussed in detail. Objective - Vital Signs/Intake and Output Vital Signs (last 24 hours): Temp Pulse Resp BP Pulse Ox 98 F 56 L 18 112/72 100 02/26/17 08:09 02/26/17 08:09 02/26/17 08:09 02/26/17 08:09 02/26/17 08:09 - Medications Medications: Current Medications Aspirin (Ecotrin) 81 mg PO DAILY [facility] Last Admin: 02/26/17 09:32 Dose: 81 mg Atorvastatin Calcium (Lipitor) 40 mg PO DAILY [facility] Last Admin: 02/26/17 09:31 Dose: 40 mg Doxepin HCl (Sinequan) 25 mg PO HS [facility] Last Admin: 02/25/17 21:16 Dose: 25 mg Sodium Chloride (Sodium Chloride 0.9%) 1,000 mls @ 100 mls/hr IV .Q10H [facility] Stop: 02/26/17 14:38 Last Admin: 02/26/17 01:54 Dose: 100 mls/hr Lamotrigine (Lamictal) 200 mg PO DAILY [facility] Last Admin: 02/26/17 09:32 Dose: 200 mg Meclizine HCl (Antivert) 12.5 mg PO TID [facility] Last Admin: 02/26/17 09:31 Dose: 12.5 mg - Labs Labs: 02/25/17 17:12 02/25/17 17:12 PT 10.0 SECONDS (9.6-11.2) 02/21/17 07:50 INR 0.96 (0.92-1.08) 02/21/17 07:50 APTT 24.7 SECONDS (23.3-32.5) 02/21/17 07:50 - Constitutional Appears: No Acute Distress - Head Exam Head Exam: ATRAUMATIC, NORMAL INSPECTION, NORMOCEPHALIC - Eye Exam Eye Exam: EOMI, Normal appearance, PERRL Pupil Exam: NORMAL ACCOMODATION - ENT Exam ENT Exam: Mucous Membranes Moist, Normal External Ear Exam - Neck Exam Neck Exam: Full ROM. absent: Meningismus - Respiratory Exam Respiratory Exam: NORMAL BREATHING PATTERN. absent: Respiratory Distress - Cardiovascular Exam Cardiovascular Exam: REGULAR RHYTHM, +S1, +S2 - GI/Abdominal Exam GI & Abdominal Exam: Soft, Normal Bowel Sounds. absent: Tenderness - Extremities Exam Extremities Exam: Full ROM, Normal Capillary Refill. absent: Calf Tenderness, Pedal Edema - Back Exam Back Exam: Full ROM, NORMAL INSPECTION. absent: CVA tenderness (L), CVA tenderness (R), paraspinal tenderness, vertebral tenderness - Neurological Exam Neurological Exam: Alert, Awake, CN II-XII Intact, Oriented x3 Neuro motor strength exam: Left Upper Extremity: 5, Right Upper Extremity: 5, Left Lower Extremity: 5, Right Lower Extremity: 5 - Psychiatric Exam Psychiatric exam: Normal Affect, Normal Mood - Skin Skin Exam: Dry, Normal Color, Warm Assessment and Plan (1) TIA (transient ischemic attack) Status: Acute (2) Dizziness Status: Acute (3) BPV (benign positional vertigo) Status: Suspected (4) Bradycardia Status: Acute (5) Bipolar disorder Status: Chronic (6) DVT prophylaxis Status: Acute - Assessment and Plan (Free Text) Assessment: 56 y/o lady with hx of Bipolar dis , came in bec of dizziness and right sided weakness and numbness . MRI of Brain, MRA of head : negative. Pt's neuro deficit improved. ECHO : normal EF, wall motion. Noted bradycardia ( lowest 36) on Tele monitor. (1) TIA (transient ischemic attack) Status: Acute Pt came in with right sided weakness and numbness- her sxs resolved MRI of brain and MRA were negative. ECHO ; normal CT of head x 3 negative PT/OT consulted cont ASA and statin (2) Dizziness prob BPV Status: Acute PT consult for vestibular PT Epleys maneuver Dizziness may also be related to recent increase in Lamictal dose - dicsussed wioth pt Meclizine prn Plan for STEPHANIE placement (3) BPV (benign positional vertigo) Status: Suspected (4) Bradycardia Status: Acute noted Bradycardia on tel monitoring Cardio consulted- discussed case with Dr Hannallah- rec 24 hour holter monitoring (5) Bipolar disorder Status: Chronic cont Lamictal and Doxepin (6) DVT prophylaxis Status: Acute Lovenox
--- NOTE | 2017-02-26 14:30 | CON ---
DATE: 02/26/2017 REASON FOR CONSULTATION: Sinus bradycardia. HISTORY OF PRESENT ILLNESS: The patient is a 56-year-old female who has history of bipolar disorder. She presented because of right-sided numbness and dizziness. The patient denies any palpitation an d is unaware of any prior cardiac history. The patient was noted to be bradycardic on the monitor. The lowest heart rate was 36. Although the patient reported dizziness on admission, she denied to me having any symptoms of dizziness. The patient denies any palpitation. The patient denies any recen t fall or fainting. SOCIAL HISTORY: The patient is a nonsmoker. MEDICATIONS: Meclizine 25 mg t.i.d., aspirin 81 mg once a day, Lamictal 200 mg once a day, Lipitor 4 0 mg once a day, Doxepin 25 mg at bedtime, normal saline at 100 mL an hour. REVIEW OF SYSTEMS: No nausea or vomiting, no fever or chills. No productive cough. No retrosternal chest pain. PHYSICAL EXAMINATION: GENERAL: The patient is a middle-aged female who does not appear to be in any distress. VITAL SIGNS: Blood pressure 145/64, heart rate 63, temperature 97.9, respirations 18. HEENT: Normocephalic. NECK: No JVD. CHEST: Clear. HEART: S1, S2 regular. ABDOMEN: Soft. EXTREMITIES: No edema. LABORATORY DATA: SMA-7: Sodium 143, potassium 4.1, chloride 108, CO2 of 28, glucose 99, BUN 8, crea tinine 0.9. TSH level is within normal limits. HDL cholesterol is elevated at 77, total cholesterol elevated at 202, LDL cholesterol is within normal limits. Today's CBC is entirely within normal givens its. PT, PTT are within normal limits. Echocardiograph study revealed normal left ventricular size, wall thickness, wall motion and ejection fraction. Brain MRI: No evidence of acute infarct or acut e pathology in the brain. Head CT scan without contrast: No acute findings. EKG on admission revea led sinus bradycardia at a range of 52. Neck MRA unremarkable. Head MRA unremarkable. Chest x-ray, prominent bronchovascular markings. ASSESSMENT: 1. Right-sided numbness associated with dizziness. Neuro workup is negative so far for an acute fin ding. Rule out cervical radiculopathy. 2. Sinus bradycardia. The lowest documented 36 beats per minute. The patient is euthyroid. 3. Hyperlipidemia. RECOMMENDATIONS: The case was discussed with Dr. Givens. The patient will be maintained on Lipitor and aspirin therapy. Obtain 24-hour Holter monitor as well as x-ray of the cervical spine. Jorge Neri MD cc: [id number] TT: 02/26/2017 14:30:02 Confirmation # [id number] Dictation # [id number] rn
[2017-02-26] MEDS ORDERED: Enoxaparin 40 mg Syringe SC STA (15:47)
--- NOTE | 2017-02-26 17:17 | RAD ---
PROCEDURE: Cervical Spine Radiographs. AP, lateral, open-mouth single oblique view of the cervical spine performed. Note that study is slightly limited due to partial obscuration of the odontoid by overlying occiput in the open-mouth projection. Additionally, single oblique view poorly demonstrates left-sided exit foramina due to shallow oblique patient position. . . In addition, there is incomplete visualization at C7 and T1 segments on lateral view due to shoulder artifact HISTORY: Pain. COMPARISON: No prior FINDINGS: BONES: Ali the current study reveals no evidence of acute compression fracture nor retropulsed fragments. The vertebral bodies exhibit normal stature and alignment. Facets normally aligned DISC SPACES: Minor multilevel degenerative spondylosis. Disc space heights are relatively maintained. Small marginal anterior and posterior osteophyte formation former slightly larger than latter. Note that the left-sided exit foramina are not well delineated due to shallow oblique patient positioning. Right exit foramina not evaluated and due to the lack of contralateral obliques view. SOFT TISSUES: Normal no significant prevertebral soft tissue swelling. OTHER FINDINGS: None. IMPRESSION: Limited study as described. No acute fractures. Minor multilevel degenerative spondylosis
[2017-02-27 08:14] VITALS: RESP 18
[2017-02-27] MEDS ORDERED: Enoxaparin 40 mg Syringe SC SCH (09:00)
--- NOTE | 2017-02-27 11:56 | PN ---
DATE: 02/27/2017 SUBJECTIVE: The patient is complaining of dizziness. PHYSICAL EXAMINATION: VITAL SIGNS: Blood pressure 98/68, heart rate , temperature 98.1, respirations 18. HEENT: Normocephalic. NECK: No JVD. CHEST: Clear. HEART: S1, S2 regular. ABDOMEN: Soft. EXTREMITIES: No edema. BACK: Cervical spine x-ray which was ordered yesterday revealed limited study. No acute fracture, m inor multilevel degenerative spondylosis. ASSESSMENT: 1. Right-sided numbness and dizziness. 2. Sinus bradycardia. 3. Bipolar disorder. RECOMMENDATIONS: Continue aspirin 81 mg once a day, Lipitor at 40 mg once a day, Lovenox at 40 mg portillo bcutaneous once a day. A 24-hour Holter monitor cannot be scheduled because of policy that prohibits doing holters on telemetry unit. I did request electrophysiology evaluation from Dr. Kaur. Jorge Neri MD cc: [id number] TT: 02/27/2017 11:56:02 Confirmation # [id number] Dictation # [id number] mitchell
[2017-02-27 12:39] VITALS: BP 110/80; PULSE 63; TEMP 97.8; O2SAT 100
--- NOTE | 2017-02-27 13:53 | CP.PCM.DIS ---
Provider - Provider Date of Admission: 02/21/17 11:52 Attending physician: Rosas Morris MD Consults: neurology consult PT consult cardiology consult Time Spent in preparation of Discharge (in minutes): 20 Hospital Course - Lab Results Lab Results: Most Recent Lab Values WBC 5.2 K/uL (4.8-10.8) 02/25/17 17:12 RBC 4.50 Mil/uL (3.80-5.20) 02/25/17 17:12 Hgb 13.6 g/dL (12.0-16.0) 02/25/17 17:12 Hct 41.0 % (34.0-47.0) 02/25/17 17:12 MCV 91.3 fl (81.0-99.0) 02/25/17 17:12 MCH 30.2 pg (27.0-31.0) 02/25/17 17:12 MCHC 33.1 g/dL (33.0-37.0) 02/25/17 17:12 RDW 14.5 % (11.5-14.5) 02/25/17 17:12 Plt Count 173 K/uL (130-400) 02/25/17 17:12 MPV 11.6 fl (7.2-11.7) 02/21/17 07:50 Neut % (Auto) 46.9 % (50.0-75.0) L 02/21/17 07:50 Lymph % (Auto) 39.2 % (20.0-40.0) 02/21/17 07:50 [place] % (Auto) 8.8 % (0.0-10.0) 02/21/17 07:50 Eos % (Auto) 4.1 % (0.0-4.0) H 02/21/17 07:50 Baso % (Auto) 1.0 % (0.0-2.0) 02/21/17 07:50 Neut # 2.1 K/uL (1.8-7.0) 02/21/17 07:50 Lymph # 1.7 K/uL (1.0-4.3) 02/21/17 07:50 [place] # 0.4 K/uL (0.0-0.8) 02/21/17 07:50 Eos # 0.2 K/uL (0.0-0.7) 02/21/17 07:50 Baso # 0.0 K/uL (0.0-0.2) 02/21/17 07:50 ESR 14 mm/hr (0-30) 02/23/17 05:00 PT 10.0 SECONDS (9.6-11.2) 02/21/17 07:50 INR 0.96 (0.92-1.08) 02/21/17 07:50 APTT 24.7 SECONDS (23.3-32.5) 02/21/17 07:50 Sodium 143 mmol/l (132-148) 02/25/17 17:12 Potassium 4.1 MMOL/L (3.6-5.0) 02/25/17 17:12 Chloride 108 mmol/L (98-107) H 02/25/17 17:12 Carbon Dioxide 26 mmol/L (22-30) 02/25/17 17:12 Anion Gap 13 (10-20) 02/25/17 17:12 BUN 8 mg/dl (7-17) 02/25/17 17:12 Creatinine 0.9 mg/dL (0.7-1.2) 02/25/17 17:12 Est GFR ( Amer) > 60 02/25/17 17:12 Est GFR (Non-Af Amer) > 60 02/25/17 17:12 POC Glucose (mg/dL) 111 mg/dL (65-110) H 02/21/17 07:36 Random Glucose 99 mg/dL (65-105) 02/25/17 17:12 Hemoglobin A1c 5.6 % (4.2-6.5) 02/22/17 07:40 Calcium 9.3 mg/dL (8.4-10.2) 02/25/17 17:12 Total Bilirubin 0.3 mg/dl (0.2-1.3) 02/25/17 17:12 AST 23 U/L (14-36) 02/25/17 17:12 ALT 32 U/L (9-52) 02/25/17 17:12 Alkaline Phosphatase 63 U/L (38-126) 02/25/17 17:12 Troponin I < 0.0120 ng/mL (0.00-0.120) 02/21/17 07:50 C-React Prot High Sens 7.05 mg/L (1.00-3.00) H 02/23/17 05:00 Total Protein 6.9 G/DL (6.3-8.2) 02/25/17 17:12 Albumin 3.7 g/dL (3.5-5.0) 02/25/17 17:12 Globulin 3.2 gm/dL (2.2-3.9) 02/25/17 17:12 Albumin/Globulin Ratio 1.2 (1.0-2.1) 02/25/17 17:12 Triglycerides 94 mg/DL (0-149) D 02/21/17 20:10 Cholesterol 202 mg/dL (0-199) H 02/21/17 20:10 LDL Cholesterol Direct 86 mg/dL (0-129) 02/21/17 20:10 HDL Cholesterol 77 MG/DL (30-70) H 02/21/17 20:10 Vitamin B12 266 pg/mL (239-931) 02/23/17 05:00 Folate 8.4 ng/mL 02/23/17 05:00 TSH 3rd Generation 1.62 mIU/ML (0.46-4.68) 02/22/17 07:40 Blood Type B POSITIVE 02/21/17 09:15 Blood Type Confirm B POSITIVE 02/21/17 15:20 Antibody Screen Negative 02/21/17 09:15 BBK History Checked No verified bt 02/21/17 09:15 - Hospital Course Hospital Course: 56 y/o lady with hx of Bipolar dis , came in bec of dizziness and right sided weakness and numbness . Patient was initially admitted under Dr. Goddard's service. She was admitted with suspicious diagnosis of stroke.Neurology was consulted .lCT head , MRI head MRA were ordered and showed no acute pathology. Patient's weakness and numbness to right side resolved but she continued to complain of dizziness. As per neurology patient most likely had TIA and recommended ASA and lipitor and meclizine for dizziness. Her echo was normal. Tele monitor did show some episodes of bradycardia as low as 36 ( while sleeping ) and cardiology was consulted.Since the bradycardia was transient Holter monitoring as out patient was recommended. PT was consulted and recommended physical therapy but as per staff patient first refused and later complained that nobody was explaining anything to her, requesting a different physician to take care of her. Patient transferred under hospitalist team. Meclizine was given for symptomatic relied of dizziness. Physical therapist saw the patient again and provided vestibular manipulation with not much improvement. . Patient referred for physical therapy as inpatient but request was denied by insurance company. Patient seen in the unit ambulating with steady gait , approaching nurses station, asking if she was going to be released because she was bored and wanted to go home. All chart , including physical therapists notes , nurses notes and tests were reviewed. Discussed with patient and explained to her the results of all her tests and cleared her for discharge home. Patient than became loud , belligerent, stating that everybody in this hospital is incompetent, that this is the worse hospital ever that she will never return to this hospital since we did not diagnose her. Explained and reinforced again diagnosis of TIA and vertigo and explained the proper treatment to be Meclizine for symptomatic relief of vertigo and ASA , statin for TIA. Since her insurance company did not approve for in patient PT referral for outpatient PT and vestibular PT recommended to patient. Patient very upset stating that will cholo the physician and hospital. Informed patient that her prescriptions were sent to her pharmacy.Given 1 week off from work and advised to follow up with her PMD ESTE[facility] as well as out patient physical therapy if her dizziness persists. Discharged patient home. As per staff she refused wheelchair . 1. TIA (transient ischemic attack) Pt came in with right sided weakness and numbness that resolved CT head ,MRI of brain and MRA were negative. ECHO ; normal CT of head x 3 negative PT/OT consulted cont ASA and statin 2. Dizziness prob BPV PT consult for vestibular PT Epleys maneuver Dizziness may also be related to recent increase in Lamictal dose and this was discussed with pt Continue Meclizine prn patient not approved for inpatient rehab. Recommended to follow up with PT outpatient 3.BPV (benign positional vertigo) Suspected 4.resolved was noted Bradycardia on tele monitoring Cardio consulted- discussed case with Dr Neri- rec 24 hour holter monitoring as out patient 5. Bipolar disorder Chronic cont Lamictal and Doxepin 6. DVT prophylaxis received Discharge Exam - Head Exam Head Exam: ATRAUMATIC, NORMAL INSPECTION, NORMOCEPHALIC - Eye Exam Eye Exam: PERRL Pupil Exam: NORMAL ACCOMODATION - ENT Exam ENT Exam: Mucous Membranes Moist - Neck Exam Neck exam: Normal Inspection - Respiratory Exam Respiratory Exam: absent: Accessory Muscle Use, Prolonged Expiratory Phase, Respiratory Distress - Cardiovascular Exam Cardiovascular Exam: absent: JVD - Extremities Exam Extremities exam: normal inspection - Neurological Exam Neurological exam: Alert, CN II-XII Intact, Oriented x3 - Psychiatric Exam Psychiatric exam: Agitated, Anxious - Skin Skin Exam: Dry, Normal Color, Warm Discharge Plan - Follow Up Plan Condition: STABLE Disposition: HOME/ ROUTINE Instructions: Transient Ischemic Attack (DC), Vertigo (DC)
== END 2017-02-27 16:30 | disposition home or self-care (01) ==
LOC: H.ER 07:13 → H.ERHOLD 11:52 → INTOOBSV 11:52 → H.TEL 13:07 → UNDODISIN 02-27 15:15
PROVIDERS: ADMIT Family Medicine; ATTEND Family Medicine
DX: G45.9 Transient cerebral ischemic attack, unspecified (principal); R00.1 Bradycardia, unspecified; F31.9 Bipolar disorder, unspecified; H81.10 Benign paroxysmal vertigo, unspecified ear; I95.1 Orthostatic hypotension; R73.03 Prediabetes; Z88.0 Allergy status to penicillin